=== PATIENT | male | born 1965 | race Caucasian/White ===

== ENCOUNTER → 2019-02-05 | Outpatient (CLI) | payer BC ==
[~2019-02-05] MED LIST: BACTRIM 400 MG-1 TAB PO
== END ==
LOC: COL.RAD 13:23
DX: R55 Syncope and collapse (principal)
CPT/HCPCS: Q9967

== ENCOUNTER 2019-03-29 09:58 | Outpatient (CLI) | payer BC ==
[~2019-03-29] VITALS: Ht 177.8 cm; Wt 73.8 kg
[2019-03-29] MEDS ORDERED: ZOCOR 20MG20 MG PO (10:22)
[2019-03-29] MEDS ORDERED: ASPIRIN 81M81 MG/TA2 PO (10:23)
[2019-03-29 10:31] VITALS: BP 130/90; PULSE 71; TEMP 98.5
[2019-03-29] MEDS ORDERED: CEPHALEXIN500 M1 PO (11:24)
[2019-03-29 11:40] VITALS: BP 138/71; PULSE 77
--- NOTE | 2019-03-29 12:00 | NUR ---
Discharge instructions given to pt.pt verbalizes understanding.Pt escorted out by this nurse.
== END 2019-03-29 12:32 | disposition home or self-care (01) ==
LOC: COL.CAR 09:58
DX: I48.0 Paroxysmal atrial fibrillation (principal); R55 Syncope and collapse; Z82.49 Family history of ischemic heart disease and other diseases of the circulatory system; Z79.82 Long term (current) use of aspirin; E78.2 Mixed hyperlipidemia; I45.10 Unspecified right bundle-branch block; I34.9 Nonrheumatic mitral valve disorder, unspecified
CPT/HCPCS: 27776; C1764

== ENCOUNTER → 2019-10-22 | Outpatient (CLI) | payer BC ==
[~2019-10-22] MED LIST changes: +ASPIRIN 81M81 MG/TA2 PO; +CEPHALEXIN500 M1 PO; +ZOCOR 20MG20 MG PO
== END ==
LOC: COL.RAD 09-27 14:00
DX: Z82.49 Family history of ischemic heart disease and other diseases of the circulatory system (principal)
CPT/HCPCS: Q9967